=== PATIENT | female | born 1995 | race Caucasian/White ===

== ENCOUNTER 2017-05-12 13:24 | Emergency (ER) | payer OTHER ==
[~2017-05-12] VITALS: Ht 160 cm; Wt 72.8 kg
[2017-05-12 13:55] LABS: MCH 27.2 PG (29.0-34.0); MCHC 33.5 G/DL (30.0-36.0); MCV 81.3 FL (83-99); MEAN PLAT.VOLUME 9.9 uM^3 (9.5-12.4); PLATELET COUNT 238 K/uL (156-360); RBC DIS.WIDTH-CV 12.8 % (11.8-14.6); RBC DIS.WIDTH-SD 37.8 % (39-53); RED BLOOD COUNT 4.92 M/uL (3.80-5.20)
[2017-05-12 14:06] LABS: CHLORIDE 109 mEq/L (99-109); POTASSIUM 3.4 mEq/L (3.7-5.4); SODIUM 141 mEq/L (136-147)
[2017-05-12 14:08] LABS: GLUCOSE 119 mg/dL (70-99)
[2017-05-12 14:09] LABS: ANION GAP 9 MEQ/L (2-14)
[2017-05-12 14:10] LABS: TOTAL BILIRUBIN 0.3 mg/dL (0.0-1.0)
[2017-05-12 14:11] LABS: ALKALINE PHOSPHATASE 86 IU/L (3-129)
[2017-05-12 14:12] LABS: GFR ESTIMATE (CALCULATED) > 59 mL/min/
[2017-05-12 14:13] LABS: UREA NITROGEN (BUN) 7 mg/dL (9-23)
[2017-05-12 14:23] LABS: QUANTITATIVE HCG < 4.0 MIU/ML
[2017-05-12 14:58] LABS: ADD MIUA? NO; BILIRUBIN NEGATIVE; BLOOD NEGATIVE; COLOR YELLOW ((YELLOW)); GLUCOSE (STRIP) NEGATIVE; KETONES 5; LEUKOCYTES NEGATIVE; NITRITE NEGATIVE; PROTEIN (STRIP) 30; SPECIFIC GRAVITY 1.024 (1.000-1.030); UCUL ADDED? NO; UROBILINOGEN 0.2 MG/DL (0.2-1.0)
[2017-05-12 15:40] LABS: LIPASE 14 U/L (1.0-51.0)
[2017-05-12 17:24] LABS: C DIFF TOXIN POSITIVE (NEGATIVE)
[2017-05-12 17:26] LABS: PROBE CHECK PASS
[2017-05-12] MEDS ORDERED: FLAGYL500 MG PO (17:36)
[2017-05-12] MEDS ORDERED: ZOFRAN ODT4 MG PO (17:36)
[2017-05-12 18:05] VITALS: BP 120/70
== END 2017-05-12 18:07 | disposition home or self-care (01) ==
LOC: EME 13:24
PROVIDERS: Nurse Practitioner Family
DX: A04.72 Enterocolitis due to Clostridium difficile, not specified as recurrent (principal); H92.09 Otalgia, unspecified ear
CPT/HCPCS: 80053; 81003; 83690; 84702; 85027; 87177; 87493; 87506; 99281; 99284